=== PATIENT | male | born 1950 | race Caucasian/White ===

== ENCOUNTER → 2017-09-13 | Outpatient (CLI) | payer MEDICARE, OTHER ==
[~2017-09-13] MED LIST: ASCO-244 PO; ASPI-1471 PO; DILT30TA63 PO; FLEC150T14 PO; FLEC50TA16 PO; GLUC-232 PO; GLUC100026 PO; HYDR-4309 PO; HYOS-49 PO; KET10 PO; LEV500 PO; METO25TA93 PO; METR-1 PO; MULT1CAP59 PO; NSAID; PAN40 PO; PANT40TA65 PO; PER PO; RANI-324 PO; RIVA20TA PO; ROSU5TAB8 PO; TADA5TAB7 PO; [UNRECOGNIZED DRUG - OTHER] PO
--- NOTE | 2017-09-13 12:00 | RADIOLOGY IMAGING REPORT ---
[place] [facility] [place] Afshin Mohan : 1950 MR: [id number] V: [id number] EXAM DATE: ORDERING PHYSICIAN: VIELKA BIRMINGHAM TECHNOLOGIST: Location: [facility] Patient: Afshin Mohan : 1950 Visit/Account:[id number] Date of Sevice: 09/13/2017 Abdominal aortic ultrasound. HISTORY: Abdominal aortic aneurysm screening. COMPARISON: CT scan 11/17/2010. A color-flow Doppler Duplex Ultrasound examination with spectral analysis was performed on the abdomi nal aorta. Suprarenal Aorta: AP 2.3 cm X Transverse 2.5 cm. Superior Infrarenal Aorta: AP 1.8 cm X Transverse 2.0 cm. Mid Infrarenal Aorta: AP 2.2 cm X Transverse 2.1 cm. Inferior Infrarenal Aorta: AP 2.0 cm X Transverse 2.3 cm. Right Common Iliac Artery: 1.5 cm. Left Common Iliac Artery: 1.1 cm. The kidneys, renal arteries, and inferior vena cava are partially obscured. Mild plaque is present i n the infrarenal abdominal aorta. An 8.2 cm cyst is present in the right kidney, essentially unchang ed. IMPRESSION: Negative for abdominal aortic aneurysm. 8.2 cm right renal cyst, essentially unchanged. Report Dictated By: Sharan Vega MD at 09/13/2017 11:51 AM Report E-Signed By: Sharan Vega MD at 09/13/2017 11:55 AM WSN:[id number]
== END ==
LOC: US 04:13
PROVIDERS: ATTEND Internal Medicine Cardiovascular Disease
DX: Z13.6 Encounter for screening for cardiovascular disorders (principal); N28.1 Cyst of kidney, acquired
CPT/HCPCS: 93978

== ENCOUNTER 2017-09-19 01:47 | Emergency (ER) | payer MEDICARE, OTHER ==
[~2017-09-19 01:47] MED LIST changes: -LOR5/325 PO; -METH-543 PO; -METH4TAB66 PO
--- NOTE | 2017-09-19 01:58 | ER Report ---
History and Physical Time Seen By MD: 01:57 Hx. of Stated Complaint: PT REPORTING BACK PAIN SINCE LAST SNOWSTORM A WEEK AGO AND HAS HAD SEVERE RIGHT LOWER QUADRANT BACK PAIN SINCE SHOVELING. EMS HAS GIVEN 4MG ATIVAN. HPI/ROS CHIEF COMPLAINT: low back pain. HISTORY OF PRESENT ILLNESS: This is a 67 year old male. He has been having several days of back pain. Started last week after shoveling snow. Had the pain mainly in the right lower back. Has had worsening with some activities such as woodworking in garage. Has done some exercises and massage. Had tried a Tramadol today without relief because the pain had worsened. Tonight much worse to the point that he could not move well. Called EMS. They gave Ativan at the house, minimal relief. He denies any bowel or bladder loss of control. He has pain that goes down the right leg. Has no weakness and not giving way. Has had some mild episodes of pain in the past, but no major problems with pain. No fevers or chills with this. No other injuries. Allergies: Coded Allergies: oxycodone (Verified Allergy, Severe, GI DISTRESS, 01/01/17) Sulfa (Sulfonamide Antibiotics) (Verified Allergy, Mild, 01/01/17) Home Meds Active Scripts Hydrocodone Bit/Acetaminophen (HYDROCODON-ACETAMINOPHEN 5-325) 1 Each Tablet, 1 EACH PO Q4H Y for PAIN, #12 TAB 0 Refills Prov:MERCEDEZ ARIAS MD 09/19/17 Methylprednisolone (METHYLPREDNISOLONE) 4 Mg Tab.ds.pk, 4 MG PO DIRECTED, #1 PACK 0 Refills Prov:MERCEDEZ ARIAS MD 09/19/17 Methocarbamol (ROBAXIN-750) 750 Mg Tablet, 750 MG PO QID Y for PAIN, #20 TAB 0 Refills Prov:MERCEDEZ ARIAS MD 09/19/17 Pantoprazole Sodium (PANTOPRAZOLE SODIUM) 40 Mg Tablet.dr, 40 MG PO DAILY, #90 TAB.SR Prov:JEFFRY MORTON MD 09/14/17 Reported Medications [Nsaid] Unknown Strength No Conflict Check 03/08/17 Ascorbic Acid (VITAMIN C) 1,000 Mg Tablet.er, 1000 MG PO 03/08/17 Hyoscyamine Sulfate (LEVSIN) 0.125 Mg Tablet, 0.125 MG PO 03/08/17 Gluc 2KCL/Chondr/Bhaskar Hy/Hy Ac (GLUCOSAMINE & CHONDROITIN CAP) 1 Each Capsule, 1 EACH PO, CAPSULE 03/08/17 Mg Trisilicate/Alh/Nahco3/Aa (GAVISCON 80-14.2 MG TAB CHEW) 1 Each Tab.chew, 1 EACH PO, TAB.CHEW 03/08/17 Glucosamine Sulfate 2KCL (GLUCOSAMINE) 1,000 Mg Tablet, 1000 MG PO DAILY 01/01/17 Multivitamin (MULTIVITAMINS) 1 Each Capsule, 1 EACH PO DAILY, CAPSULE 01/01/17 Rosuvastatin Calcium (CRESTOR) 5 Mg Tablet, 5 MG PO HS 01/01/17 Ranitidine Hcl (ZANTAC) 150 Mg Tablet, 150 MG PO BID, TAB 01/01/17 Tadalafil (CIALIS) 5 Mg Tablet, 5 MG PO QDAY 01/01/17 Metoprolol Tartrate (METOPROLOL TARTRATE) 25 Mg Tablet, 0.5 TAB PO DAILY, TAB 01/01/17 Aspirin (ASPIR 81) 81 Mg Tablet.dr, 2 TAB PO HS, TAB 01/01/17 Flecainide Acetate (FLECAINIDE ACETATE) 50 Mg Tablet, 50 MG PO BID 01/01/17 Reviewed Nurses Notes: Yes Hx Smoking: No Smoking Status: Former Smoker Hx Substance Use Disorder: No Hx Alcohol Use: Yes Constitutional Vital Sign - Last 24 Hours 09/19/17 09/19/17 09/19/17 09/19/17 01:49 01:50 02:02 02:45 Temp 98.2 Pulse 64 75 Resp 16 B/P (MAP) 162/100 (120) 162/100 151/107 (122) Pulse Ox 96 92 O2 Delivery Room Air 09/19/17 09/19/17 09/19/17 09/19/17 02:47 03:00 03:02 03:30 Pulse 63 65 B/P (MAP) 150/89 (109) 148/102 (117) Pulse Ox 89 91 09/19/17 09/19/17 09/19/17 09/19/17 03:32 03:37 03:42 03:57 Pulse 58 64 63 72 Pulse Ox 92 91 09/19/17 09/19/17 09/19/17 09/19/17 04:00 04:12 04:27 04:30 Pulse 86 63 B/P (MAP) 163/105 (124) 145/91 (109) Pulse Ox 87 89 09/19/17 09/19/17 09/19/17 09/19/17 04:42 04:57 05:00 05:12 Pulse 67 70 85 B/P (MAP) 127/75 (92) Pulse Ox 92 89 92 09/19/17 09/19/17 09/19/17 09/19/17 05:17 05:30 05:32 05:47 Pulse 59 66 72 B/P (MAP) 137/90 (106) Pulse Ox 89 91 93 09/19/17 09/19/17 09/19/17 09/19/17 06:00 06:02 06:17 06:54 Pulse 65 75 85 Resp 16 B/P (MAP) 144/94 (111) 138/85 (102) Pulse Ox 94 90 95 O2 Delivery Room Air Physical Exam General appearance: Alert, having some distress due to pain. Back: [Thoracic spine] [has no spinal or paraspinal tenderness to palpation.] [Lumbar spine] [has no spinal tenderness] [moderate][paraspinal tenderness] [Gastroinal:] [Abdomen is soft, non tender, no masses..] [Skin:] [No lesions and no rashes.] [Vascular:] [Normal capillary refill and pulses to feet.] Neurological: [Motor function: leg strength normal and symmetric for both legs] [Sensory function: normal for all leg dermatomes.] [Straight leg raise negative to 70 degrees.] [Reflexes normal bilaterally on legs.] [ ] [DIFFERENTIAL DIAGNOSIS: After history and physical exam differential diagnosis was considered for] [back pain including muscular strain, herniated disc, intra- abdominal and renal causes.] Medical Decision Making Data Points Result Diagram: 09/19/17 0443 09/19/17 0443 Laboratory Hematology Test 09/19/17 04:43 09/19/17 04:50 Red Blood Count 5.91 M/uL (4.00-5.60) Mean Corpuscular Volume 88.0 fL (80.0-96.0) Mean Corpuscular Hemoglobin 31.0 pg (26.0-33.0) Mean Corpuscular Hemoglobin Concent 35.2 g/dL (32.0-36.0) Red Cell Distribution Width 13.7 % (11.5-14.5) Mean Platelet Volume 8.0 fL (7.2-11.1) Neutrophils (%) (Auto) 82.6 % (39.4-72.5) Lymphocytes (%) (Auto) 9.6 % (17.6-49.6) Monocytes (%) (Auto) 4.5 % (4.1-12.4) Eosinophils (%) (Auto) 1.0 % (0.4-6.7) Basophils (%) (Auto) 2.3 % (0.3-1.4) Nucleated RBC Relative Count (auto) 0.0 /100WBC Neutrophils # (Auto) 7.2 K/uL (2.0-7.4) Lymphocytes # (Auto) 0.8 K/uL (1.3-3.6) Monocytes # (Auto) 0.4 K/uL (0.3-1.0) Eosinophils # (Auto) 0.1 K/uL (0.0-0.5) Basophils # (Auto) 0.2 K/uL (0.0-0.1) Nucleated RBC Absolute Count (auto) 0.00 K/uL Erythrocyte Sedimentation Rate 1 mm/HOUR (0-20) Sodium Level 136 mmol/L (137-145) Potassium Level 4.1 mmol/L (3.5-5.0) Chloride Level 97 mmol/L (98-107) Carbon Dioxide Level 26 mmol/L (22-30) Blood Urea Nitrogen 12 mg/dl (9-21) Creatinine 0.80 mg/dl (0.66-1.25) Glomerular Filtration Rate Calc > 60.0 Random Glucose 125 mg/dl (75-110) Calcium Level 9.3 mg/dl (8.4-10.2) Total Bilirubin 0.6 mg/dl (0.2-1.3) Aspartate Amino Transf (AST/SGOT) 31 U/L (0-35) Alanine Aminotransferase (ALT/SGPT) 40 U/L (0-56) Alkaline Phosphatase 44 U/L (0-126) C-Reactive Protein < 0.5 mg/dl (<1.0) Total Protein 7.5 gm/dl (6.3-8.2) Albumin 4.2 g/dl (3.5-5.0) Urine Color Yellow Urine Clarity Clear Urine pH 8.0 pH (4.8-9.5) Urine Specific [place] 1.011 Urine Protein Negative mg/dL (NEGATIVE) Urine Glucose (UA) Negative mg/dL (NEGATIVE) Urine Ketones Negative mg/dL (NEGATIVE) Urine Blood Negative (NEGATIVE) Urine Nitrite Negative (NEGATIVE) Urine Bilirubin Negative (NEGATIVE) Urine Urobilinogen Negative mg/dL (0.2-1.9) Urine Leukocyte Esterase Negative (NEGATIVE) Urine RBC 3 /HPF (0-2/HPF) Urine WBC <1 /HPF (0-5/HPF) Urine Squamous Epithelial Cells None /LPF (</=FEW) Urine Bacteria Negative /HPF (NONE-FEW) Urine Mucus None /HPF (NONE-FEW) Chemistry Test 09/19/17 04:43 09/19/17 04:50 White Blood Count 8.7 k/uL (4.5-11.0) Red Blood Count 5.91 M/uL (4.00-5.60) Hemoglobin 18.3 g/dL (14.0-18.0) Hematocrit 52.0 % (42.0-52.0) Mean Corpuscular Volume 88.0 fL (80.0-96.0) Mean Corpuscular Hemoglobin 31.0 pg (26.0-33.0) Mean Corpuscular Hemoglobin Concent 35.2 g/dL (32.0-36.0) Red Cell Distribution Width 13.7 % (11.5-14.5) Platelet Count 200 K/uL (150-450) Mean Platelet Volume 8.0 fL (7.2-11.1) Neutrophils (%) (Auto) 82.6 % (39.4-72.5) Lymphocytes (%) (Auto) 9.6 % (17.6-49.6) Monocytes (%) (Auto) 4.5 % (4.1-12.4) Eosinophils (%) (Auto) 1.0 % (0.4-6.7) Basophils (%) (Auto) 2.3 % (0.3-1.4) Nucleated RBC Relative Count (auto) 0.0 /100WBC Neutrophils # (Auto) 7.2 K/uL (2.0-7.4) Lymphocytes # (Auto) 0.8 K/uL (1.3-3.6) Monocytes # (Auto) 0.4 K/uL (0.3-1.0) Eosinophils # (Auto) 0.1 K/uL (0.0-0.5) Basophils # (Auto) 0.2 K/uL (0.0-0.1) Nucleated RBC Absolute Count (auto) 0.00 K/uL Erythrocyte Sedimentation Rate 1 mm/HOUR (0-20) Glomerular Filtration Rate Calc > 60.0 Calcium Level 9.3 mg/dl (8.4-10.2) Total Bilirubin 0.6 mg/dl (0.2-1.3) Aspartate Amino Transf (AST/SGOT) 31 U/L (0-35) Alanine Aminotransferase (ALT/SGPT) 40 U/L (0-56) Alkaline Phosphatase 44 U/L (0-126) C-Reactive Protein < 0.5 mg/dl (<1.0) Total Protein 7.5 gm/dl (6.3-8.2) Albumin 4.2 g/dl (3.5-5.0) Urine Color Yellow Urine Clarity Clear Urine pH 8.0 pH (4.8-9.5) Urine Specific [place] 1.011 Urine Protein Negative mg/dL (NEGATIVE) Urine Glucose (UA) Negative mg/dL (NEGATIVE) Urine Ketones Negative mg/dL (NEGATIVE) Urine Blood Negative (NEGATIVE) Urine Nitrite Negative (NEGATIVE) Urine Bilirubin Negative (NEGATIVE) Urine Urobilinogen Negative mg/dL (0.2-1.9) Urine Leukocyte Esterase Negative (NEGATIVE) Urine RBC 3 /HPF (0-2/HPF) Urine WBC <1 /HPF (0-5/HPF) Urine Squamous Epithelial Cells None /LPF (</=FEW) Urine Bacteria Negative /HPF (NONE-FEW) Urine Mucus None /HPF (NONE-FEW) Urinalysis Test 09/19/17 04:50 Urine Color Yellow Urine Clarity Clear Urine pH 8.0 pH (4.8-9.5) Urine Specific [place] 1.011 Urine Protein Negative mg/dL (NEGATIVE) Urine Glucose (UA) Negative mg/dL (NEGATIVE) Urine Ketones Negative mg/dL (NEGATIVE) Urine Blood Negative (NEGATIVE) Urine Nitrite Negative (NEGATIVE) Urine Bilirubin Negative (NEGATIVE) Urine Urobilinogen Negative mg/dL (0.2-1.9) Urine Leukocyte Esterase Negative (NEGATIVE) Urine RBC 3 /HPF (0-2/HPF) Urine WBC <1 /HPF (0-5/HPF) Urine Squamous Epithelial Cells None /LPF (</=FEW) Urine Bacteria Negative /HPF (NONE-FEW) Urine Mucus None /HPF (NONE-FEW) EKG/Imaging Imaging Images not coming over from digital radiography. Images of the lumbar spine show no acute osseous abnormality, moderate multilevel spondylosis worst at L5- S1 level ED Course/Re-evaluation Clinical Indication for ER IV: IV Access ED Course Patient in moderate pain when evaluated. Appears to be inflammatory at the right SI area. Ativan had helped a little. Still in pain and feeling drugged. Gave Toradol 30mg IV without improvement. Also gave Norflex 30mg IV, more sedated, hard to tell if improved. Blood pressure still running high. Imaging as noted above. No red flag symptoms that would suggest need for MRI at this time. Would think steroid treatment with muscle relaxers and then follow-up with physical therapy. Urine and labs ordered and are unremarkable at this time. Allowing the medications to wear off and will discharge home with Robaxin and Medrol Dosepak. Patient finally was more alert after the medications. The pain is coming back and he's having significant spasming. We discussed pain management and we will go ahead and try some hydrocodone as well as Robaxin and get him started on a Medrol Dosepak. Discussed red flag symptoms that would require return either to their regular doctor or here to the ER for further evaluation. Decision to Disposition Date: Sep 19, 2017 Decision to Disposition Time: 06:08 Depart Departure Latest Vital Signs Vital Signs Date Time Temp Pulse Resp B/P (MAP) Pulse Ox O2 Delivery O2 Flow Rate FiO2 09/19/17 06:54 85 16 138/85 (102) 95 Room Air 09/19/17 01:50 98.2 Impression: Primary Impression: Low back pain with right-sided sciatica Condition: Condition Unchanged Disposition: HOME OR SELF-CARE Referrals: JEFFRY MORTON MD (PCP) New Scripts Hydrocodone Bit/Acetaminophen (HYDROCODON-ACETAMINOPHEN 5-325) 1 Each Tablet 1 EACH PO Q4H Y for PAIN, #12 TAB 0 Refills Prov: MERCEDEZ ARIAS MD 09/19/17 Methylprednisolone (METHYLPREDNISOLONE) 4 Mg Tab.ds.pk 4 MG PO DIRECTED, #1 PACK 0 Refills Prov: MERCEDEZ ARIAS MD 09/19/17 Methocarbamol (ROBAXIN-750) 750 Mg Tablet 750 MG PO QID Y for PAIN, #20 TAB 0 Refills Prov: MERCEDEZ ARIAS MD 09/19/17 Patient Instructions: Acute Low Back Pain (ED), Sciatica (ED) Additional Instructions: Imaging with some degenerative changes. Labs are unremarkable. We are going to have you start working with a physical therapist for further treatment and evaluation of the pain. Take a Medrol Dosepak over the next 6 days. Take Robaxin 750mg, one every 6 hours as needed for muscle spasm or pain. Take Hydrocodone/APAP 5/325, one every 4 hours as needed for pain. If you take the Hydrocodone, do not take any extra Tylenol If you decide to take Tylenol instead of Hydrocodone, take Tylenol 500mg tablets , 1-2 every 6 hours as needed for pain, Do not take more than 8 tablets in 24 hours. Consider evaluation with a back specialist if not getting better. If having loss of control of bowel or bladder, or if having foot drop or weakness of one foot or leg, please see your regular doctor or return to the ER for further evaluation. Problem Qualifiers Primary Impression: Low back pain with right-sided sciatica Chronicity: acute Back pain laterality: right Qualified Codes: M54.41 - Lumbago with sciatica, right side MERCEDEZ ARIAS MD Sep 19, 2017 01:58
[2017-09-19] MEDS ORDERED: ORPHENADRINE 60MG/2ML INJ IVP ONE (02:10)
[2017-09-19] MEDS ORDERED: KETOROLAC 30 MG/ML VIAL IVP ONE (02:10)
[2017-09-19 04:51] LABS: PLATELET COUNT, AUTOMATED 200 K/uL (150-450)
[2017-09-19] MEDS ORDERED: METH-543 PO (06:13)
[2017-09-19] MEDS ORDERED: METH4TAB66 PO (06:13)
[2017-09-19] MEDS ORDERED: LOR5/325 PO (06:40)
[2017-09-19] MEDS ORDERED: ACET/HYDROC 5/325MG TH ER ONLY 2 TAB/BOTTLE PO ONE (06:40)
[2017-09-19 06:54] VITALS: BP 138/85
--- NOTE | 2017-09-19 16:45 | RADIOLOGY IMAGING REPORT ---
FACILITY: [facility] PATIENT NAME: Afshin Mohan : 1950 MR: [id number] V: [id number] EXAM DATE: ORDERING PHYSICIAN: MERCEDEZ ARIAS TECHNOLOGIST: Location: [facility] Patient: Afshin Mohan : 1950 Visit/Account:[id number] Date of Sevice: 09/19/2017 INDICATION: Low back pain. EXAM DATE: 09/19/2017 2:08 AM. COMPARISON: None. FINDINGS: 3 views lumbar spine. Mineralization is normal. No acute alignment abnormality or fracture. Moderate multilevel spondylosis is greatest at L5-S1. Soft tissues are unremarkable. IMPRESSION: 1. No acute osseous abnormality of the lumbar spine. 2. Moderate multilevel spondylosis, greatest at L5-S1. Report Dictated By: Alcides Henderson MD at 09/19/2017 3:58 AM Report E-Signed By: Alcides Henderson MD at 09/19/2017 4:03 AM WSN:[id number]
== END 2017-09-19 07:02 | disposition home or self-care (01) ==
LOC: ER 01:50
DX: M54.41 Lumbago with sciatica, right side (principal)
CPT/HCPCS: 72100; 81001; 85025; 85651; 86140; 96374; 96375; 99284; J1885; J2360; 82040; 82247; 82310; 82374; 82435; 82565; 82947; 84075; 84132; 84155; 84295; 84450; 84460; 84520

== ENCOUNTER → 2017-09-19 | Outpatient (CLI) | payer MEDICARE, OTHER ==
[~2017-09-19] MED LIST changes: +LOR5/325 PO; +METH-543 PO; +METH4TAB66 PO
== END ==
LOC: AMB 01:13
PROVIDERS: ATTEND Nurse Practitioner
DX: M62.830 Muscle spasm of back (principal); M54.9 Dorsalgia, unspecified; M79.604 Pain in right leg
CPT/HCPCS: A0425; A0427

== ENCOUNTER 2017-09-21 14:29 | Emergency (ER) | payer MEDICARE, OTHER ==
[~2017-09-21 14:29] MED LIST changes: +LOR5/325 PO; +METH-543 PO; +METH4TAB66 PO
--- NOTE | 2017-09-21 15:11 | ER Report ---
History and Physical Time Seen By MD: 15:08 Hx. of Stated Complaint: PT RETURNS WITH SAME COMLAINT 2 DAYS AGO WITH RIGHT LOWER BACK PAIN. PT HAS APPT TOMORROW MORNING IN [place]. HPI/ROS CHIEF COMPLAINT: Pain HISTORY OF PRESENT ILLNESS: This is a 67-year-old male who returns to the emergency department for worsening back pain and numbness down the right leg. Patient was seen in the emergency department Wednesday night and was given some pain medications muscle relaxers and a steroid and did follow up with physical therapy. Patient states that he was scheduled to have physical therapy today but the acute pain that he was having returned and now he is having numbness and tingling down the right leg. No loss of bowel or bladder. Patient does also state that he has a little bit of numbness and tingling that wraps around into his groin but no saddle anesthesia. Patient states he has been taking his medications as prescribed with little to no relief. He did call and make a follow-up appointment with [facility] in the [facility] for tomorrow. Patient denies headaches, chest pain, shortness of breath or rashes. REVIEW OF SYSTEMS: Respiratory: No cough, no dyspnea. Cardiovascular: No chest pain, no palpitations. Gastrointestinal: No vomiting, no abdominal pain. Musculoskeletal: As above. Allergies: Coded Allergies: oxycodone (Verified Allergy, Severe, GI DISTRESS, 09/21/17) Sulfa (Sulfonamide Antibiotics) (Verified Allergy, Mild, 09/21/17) Home Meds Active Scripts Hydrocodone Bit/Acetaminophen (HYDROCODON-ACETAMINOPHEN 5-325) 1 Each Tablet, 1 EACH PO Q4H Y for PAIN, #12 TAB 0 Refills Prov:MERCEDEZ ARIAS MD 09/19/17 Methylprednisolone (METHYLPREDNISOLONE) 4 Mg Tab.ds.pk, 4 MG PO DIRECTED, #1 PACK 0 Refills Prov:MERCEDEZ ARIAS MD 09/19/17 Methocarbamol (ROBAXIN-750) 750 Mg Tablet, 750 MG PO QID Y for PAIN, #20 TAB 0 Refills Prov:MERCEDEZ ARIAS MD 09/19/17 Pantoprazole Sodium (PANTOPRAZOLE SODIUM) 40 Mg Tablet.dr, 40 MG PO DAILY, #90 TAB.SR Prov:JEFFRY MORTON MD 09/14/17 Reported Medications [Nsaid] Unknown Strength No Conflict Check 03/08/17 Ascorbic Acid (VITAMIN C) 1,000 Mg Tablet.er, 1000 MG PO 03/08/17 Hyoscyamine Sulfate (LEVSIN) 0.125 Mg Tablet, 0.125 MG PO 03/08/17 Gluc 2KCL/Chondr/Bhaskar Hy/Hy Ac (GLUCOSAMINE & CHONDROITIN CAP) 1 Each Capsule, 1 EACH PO, CAPSULE 03/08/17 Mg Trisilicate/Alh/Nahco3/Aa (GAVISCON 80-14.2 MG TAB CHEW) 1 Each Tab.chew, 1 EACH PO, TAB.CHEW 03/08/17 Glucosamine Sulfate 2KCL (GLUCOSAMINE) 1,000 Mg Tablet, 1000 MG PO DAILY 01/01/17 Multivitamin (MULTIVITAMINS) 1 Each Capsule, 1 EACH PO DAILY, CAPSULE 01/01/17 Rosuvastatin Calcium (CRESTOR) 5 Mg Tablet, 5 MG PO HS 01/01/17 Ranitidine Hcl (ZANTAC) 150 Mg Tablet, 150 MG PO BID, TAB 01/01/17 Tadalafil (CIALIS) 5 Mg Tablet, 5 MG PO QDAY 01/01/17 Metoprolol Tartrate (METOPROLOL TARTRATE) 25 Mg Tablet, 0.5 TAB PO DAILY, TAB 01/01/17 Aspirin (ASPIR 81) 81 Mg Tablet.dr, 2 TAB PO HS, TAB 01/01/17 Flecainide Acetate (FLECAINIDE ACETATE) 50 Mg Tablet, 50 MG PO BID 01/01/17 Past Medical/Surgical History Patient has a past medical and surgical history of PVCs, hypercholesterolemia, GERD, BPH, skin cancer lesions removed, ablation for A. fib, radiofrequency ablation of the neck for pain, appendectomy, TURP, shoulder surgery, back surgery. Reviewed Nurses Notes: Yes Hx Smoking: No Smoking Status: Former Smoker Hx Substance Use Disorder: No Hx Alcohol Use: Yes Constitutional Vital Sign - Last 24 Hours 09/21/17 09/21/17 09/21/17 09/21/17 14:45 14:47 14:59 15:00 Temp 97.5 Pulse 68 66 Resp 20 B/P (MAP) 152/98 (116) 152/98 147/99 (115) Pulse Ox 97 96 O2 Delivery Room Air 09/21/17 09/21/17 09/21/17 09/21/17 15:14 15:29 15:30 15:44 Pulse 85 64 70 B/P (MAP) 138/94 (109) Pulse Ox 99 97 09/21/17 09/21/17 09/21/17 09/21/17 15:49 16:37 16:42 17:57 Pulse 68 65 75 B/P (MAP) 128/90 (103) Pulse Ox 95 95 93 09/21/17 09/21/17 09/21/17 09/21/17 18:00 18:12 18:27 18:30 Pulse 63 69 B/P (MAP) 154/122 (133) 135/95 (108) Pulse Ox 95 93 09/21/17 09/21/17 09/21/17 09/21/17 18:40 18:55 19:00 19:10 Pulse 69 68 68 B/P (MAP) 125/74 (91) Pulse Ox 91 92 92 09/21/17 09/21/17 09/21/17 09/21/17 19:25 19:30 19:45 20:00 Pulse 68 67 80 B/P (MAP) 138/84 (102) 133/105 (114) Pulse Ox 92 92 94 Physical Exam General Appearance: The patient is alert, has no immediate need for airway protection and no current signs of toxicity, appears uncomfortable, moving his right leg up in a bent position for comfort. Eyes: Pupils equal and round no injection. Respiratory: Chest is non tender, lungs are clear to auscultation. Cardiac: regular rate and rhythm. Gastrointestinal: Abdomen is soft and non tender, no masses, bowel sounds normal. Musculoskeletal: Neck: Neck is supple and non tender. Extremities: Lumbosacral pain with palpation more on the right side. No obvious deformities, step-offs or crepitus noted. Decreased sensation to the entire right leg. Dorsal and plantar flexion-extension intact. Pulses 5/5. Straight leg raise causes significant irritation to the lumbosacral area. Decreased muscle strength on the right leg with resistance. Skin: No rashes or lesions. DIFFERENTIAL DIAGNOSIS: After history and physical exam differential diagnosis was considered for back pain including but not limited to muscular pain, herniated disc, spine fracture, intra-abdominal causes and urinary tract infection. Medical Decision Making EKG/Imaging Imaging Location: [facility] [place] Patient: Afshin Mohan : 1950 Visit/Account:[id number] Date of [facility]: 09/21/2017 EXAMINATION: Lumbar spine MRI without IV contrast HISTORY: Back pain not resolving. Numbness and tingling down right leg. COMPARISON: Lumbar spine radiographs from 09/19/2017. TECHNIQUE: Multi-planar, multi-sequence lumbar spine MRI was performed without intravenous contrast administration. FINDINGS: Vertebral body heights are maintained. Alignment: 2 mm retrolisthesis of L4 on L5. Flattening of the normal lumbar lordosis. Vertebral marrow signal: Fatty infiltration of the marrow and marrow edema along the L5-S1 endplates (Modic type I and II changes). Mild marrow edema along the L2-3 endplates (Modic type I changes). Distal thoracic cord: Above the imaged field of view. Conus: Terminates at T12. Cauda equina: Negative. Paravertebral soft tissues: Negative. Visualized abdominal and pelvic structures: A partially visualized right kidney cyst measures at least 9.2 cm. Small cysts in the lower pole of the right kidney. Disc Spaces: T12-L1: No spinal canal or neural foraminal stenosis. L1-2: No spinal canal or neural foraminal stenosis. L2-3: Mild diffuse disc bulge and mild bilateral facet arthrosis. The disc slightly indents the ventral thecal sac. The neural foramina are slightly narrowed. L3-4: There is partial filling of the superior right L3-4 neural foramen by what appears to be extruded disc which impinges on the right L3 nerve root within the neural foramen. There is mild diffuse disc bulge. No significant central spinal canal narrowing. L4-5: Diffuse disc bulge and mild bilateral facet arthrosis. Mild central spinal canal narrowing. Mild bilateral lateral recess stenosis. Moderate bilateral neural foraminal narrowing. L5-S1: Circumferential disc osteophyte complex. Mild bilateral facet arthrosis. No central spinal canal stenosis. Severe right and mild left neural foraminal narrowing. IMPRESSION: Multilevel disc and facet degenerative changes in the lumbar spine. There is mild central spinal canal narrowing at the L4-5 level. There appears to be a small right foraminal disc extrusion at L3-4 which partially fills the neural foramen, impinging on the right L3 nerve root. Advanced disc degenerative changes at L5-S1 with severe narrowing of the right L5-S1 neural foramen. Moderate bilateral neural foraminal narrowing at L4-5. Report Dictated By: Juvenal Chen MD at 09/21/2017 6:13 PM Report E-Signed By: Juvenal Chen MD at 09/21/2017 6:32 PM WSN:[id number] ED Course/Re-evaluation ED Course The patient was admitted to a room. A history and physical were obtained. Differential diagnoses were considered. An IV was started. Patient was given 1 mg IV Ativan which helped with his discomfort. Given the patient's changes in the last day or so with the right leg numbness and tingling and then pain into the groin area we elected to proceed with a lumbar MRI. Patient was given another 0.5 mg IV Ativan prior to the MR, is also given 15 mg IV ketoralac. The MRI showing a small right foraminal disc extrusion at L3-4 which partially fills the neural foramen, impinging on the right L3 nerve root and Advanced disc degenerative changes at L5-S1 with severe narrowing of the right L5-S1 neural foramen. He did review these results with the patient's and his family. They were sent home with oral Valium. Continue with the other medications A been prescribed. They will follow-up in [place] with orthopedic [facility]. I did tell them of the need to come back anytime a concerning to this. Patient was in agreement with this plan of care and discharged home. He did have improvement after the Ativan. Still having some decreased sensation in the right leg. Decision to Disposition Date: Sep 21, 2017 Decision to Disposition Time: 19:50 Depart Departure Latest Vital Signs Vital Signs Date Time Temp Pulse Resp B/P (MAP) Pulse Ox O2 Delivery O2 Flow Rate FiO2 09/21/17 20:00 80 133/105 (114) 94 09/21/17 14:47 97.5 20 Room Air Impression: Primary Impression: Low back pain with right-sided sciatica Condition: Improved Disposition: HOME OR SELF-CARE Patient Instructions: Acute Low Back Pain (ED) Additional Instructions: Drink plenty of fluids. Get plenty of rest. Take one Valium tablet every 8 hours as needed for muscle spasms. Continue with your current medications. Be sure to follow-up with orthopedics center [facility] as scheduled tomorrow. May return to the ED for any other concerns or worsening symptoms. Problem Qualifiers Primary Impression: Low back pain with right-sided sciatica Chronicity: acute Back pain laterality: right Qualified Codes: M54.41 - Lumbago with sciatica, right side JUAN CARLOS ALCOCERP- Sep 21, 2017 15:11
[2017-09-21] MEDS ORDERED: ONDANSETRON 4 MG/2 ML VIAL IVP ONE (15:30)
[2017-09-21] MEDS ORDERED: LORazepam 2 MG/ML VIAL IVP ONE ×2 (15:30→16:45)
--- NOTE | 2017-09-21 16:28 | RADIOLOGY IMAGING REPORT ---
FACILITY: [facility] [place] PATIENT NAME: Afshin Mohan : 1950 MR: [id number] V: [id number] EXAM DATE: ORDERING PHYSICIAN: JUAN CARLOS ALCOCER TECHNOLOGIST: Location: [facility] [place] Patient: Afshin Mohan : 1950 Visit/Account:[id number] Date of Sev[place]: 09/21/2017 Exam type: ORBITS FOREIGN BODY 1 VIEW History: for MRI Comparison: None. Findings: No radiopaque metallic foreign bodies project over the orbits IMPRESSION: 1. No radiopaque metallic foreign bodies project over the orbits Report Dictated By: Tami Mccormack MD at 09/21/2017 4:24 PM Report E-Signed By: Tami Mccormack MD at 09/21/2017 4:24 PM WSN:[id number]
[2017-09-21] MEDS ORDERED: KETOROLAC 15 MG/ML VIAL IVP ONE (16:45)
[2017-09-21] MEDS ORDERED: LORazepam 1 MG TAB PO ONE ×2 (16:45→18:30)
--- NOTE | 2017-09-21 18:36 | RADIOLOGY IMAGING REPORT ---
[place] [facility] [place]IENT NAME: Afshin Mohan : 1950 MR: [id number] V: [id number] EXAM DATE: ORDERING PHYSICIAN: JUAN CARLOS ALCOCER TECHNOLOGIST: Location: [facility] [place] Patient: Afshin Mohan : 1950 Visit/Account:[id number] Date of Sevice: 09/21/2017 EXAMINATION: Lumbar spine MRI without IV contrast HISTORY: Back pain not resolving. Numbness and tingling down right leg. COMPARISON: Lumbar spine radiographs from 09/19/2017. TECHNIQUE: Multi-planar, multi-sequence lumbar spine MRI was performed without intravenous contrast administration. FINDINGS: Vertebral body heights are maintained. Alignment: 2 mm retrolisthesis of L4 on L5. Flattening of the normal lumbar lordosis. Vertebral marrow signal: Fatty infiltration of the marrow and marrow edema along the L5-S1 endplates (Modic type I and II changes). Mild marrow edema along the L2-3 endplates (Modic type I changes). Distal thoracic cord: Above the imaged field of view. Conus: Terminates at T12. Cauda equina: Negative. Paravertebral soft tissues: Negative. Visualized abdominal and pelvic structures: A partially visualized right kidney cyst measures at leas t 9.2 cm. Small cysts in the lower pole of the right kidney. Disc Spaces: T12-L1: No spinal canal or neural foraminal stenosis. L1-2: No spinal canal or neural foraminal stenosis. L2-3: Mild diffuse disc bulge and mild bilateral facet arthrosis. The disc slightly indents the ventr al thecal sac. The neural foramina are slightly narrowed. L3-4: There is partial filling of the superior right L3-4 neural foramen by what appears to be extrud ed disc which impinges on the right L3 nerve root within the neural foramen. There is mild diffuse di sc bulge. No significant central spinal canal narrowing. L4-5: Diffuse disc bulge and mild bilateral facet arthrosis. Mild central spinal canal narrowing. Mil d bilateral lateral recess stenosis. Moderate bilateral neural foraminal narrowing. L5-S1: Circumferential disc osteophyte complex. Mild bilateral facet arthrosis. No central spinal can al stenosis. Severe right and mild left neural foraminal narrowing. IMPRESSION: Multilevel disc and facet degenerative changes in the lumbar spine. There is mild central spinal ketty l narrowing at the L4-5 level. There appears to be a small right foraminal disc extrusion at L3-4 which partially fills the neural f oramen, impinging on the right L3 nerve root. Advanced disc degenerative changes at L5-S1 with severe narrowing of the right L5-S1 neural foramen. Moderate bilateral neural foraminal narrowing at L4-5. Report Dictated By: Juvenal Chen MD at 09/21/2017 6:13 PM Report E-Signed By: Juvenal Chen MD at 09/21/2017 6:32 PM [id number]
[2017-09-21] MEDS ORDERED: DIAZEPAM 5 MG TAB TH 2 TAB/BOTTLE PO ONE (19:50)
[2017-09-21 20:00] VITALS: BP 133/105
== END 2017-09-21 20:08 | disposition home or self-care (01) ==
LOC: ER 14:53
DX: M54.41 Lumbago with sciatica, right side (principal); M51.26 Other intervertebral disc displacement, lumbar region; M51.36 Other intervertebral disc degeneration, lumbar region
CPT/HCPCS: 70030; 72148; 96374; 96375; 96376; 99284; A9270; J1885; J2060; J2405

== ENCOUNTER → 2018-12-16 | Outpatient (CLI) | payer MEDICARE, OTHER ==
[~2018-12-16] MED LIST changes: -HYDR-4309 PO; +HYDR-653 PO; -RANI-324 PO; +RANI-54 PO
--- NOTE | 2018-12-19 17:21 | RT HOLTER TEST ---
FACILITY: [facility] PATIENT NAME: SAHIL HAMLIN : [id number] MR: [id number] V: [id number] EXAM DATE: ORDERING PHYSICIAN: VIELKA BIRMINGHAM TECHNOLOGIST: BETHANY Hook-up date: 2018-12-16 11:20:00 Duration: 23:58:00 Test Indications: A-FIB Medications: METOPROLOL CRESTOR [id number] QRS complexes 1 Ventricular ectopics which represent <1 % of total QRS comp. 19 Supraventricular ectopics which represent <1 % of total QRS comp. * Paced QRS complexes which represent % of total QRS comp. VENTRICULAR ECTOPY 1 Isolated 0 Bigeminal Cycles 0 Couplets 0 Runs 0 Beats in Runs * Beats LONGEST at * BPM at :: -- * Beats FASTEST at * BPM at :: -- SUPRAVENTRICULAR ECTOPY 19 Isolated 0 Couplets 0 Runs 0 Beats in Runs * Beats LONGEST at * BPM at :: -- * Beats FASTEST at * BPM at :: -- HEART RATES 51 MIN at 00:07:13 2018-12-17 73 AVG 135 MAX at 12:29:19 2018-12-16 LONGEST RR 1.344 secs at 05:37:29 2018-12-17 S-T LEVELS Channel 1 -12.800 mm MIN at 11:20:00 2018-12-16 -12.800 mm MAX at 11:20:00 2018-12-16 Channel 2 -12.800 mm MIN at 11:20:00 2018-12-16 -12.800 mm MAX at 11:20:00 2018-12-16 Channel 3 -12.800 mm MIN at 11:20:00 2018-12-16 -12.800 mm MAX at 11:20:00 2018-12-16 There were no reported symptoms during the test. The patient was predominantly in a sinus rhythm wit h rare ventricular ectopy and supraventricular ectopy. Confirmed by STACIE MONROE ([id number]) on 12/19/2018 5:18:30 PM Referred By: Overread By: STACIE MONROE
== END ==
LOC: RESP 10:56
PROVIDERS: ATTEND Internal Medicine Cardiovascular Disease
DX: I48.0 Paroxysmal atrial fibrillation (principal)
CPT/HCPCS: 93225; 93226